=== PATIENT | male | born 1955 | race Caucasian/White ===

== ENCOUNTER → 2018-04-08 08:48 | Outpatient (CLI) | payer BC, SELFPAY ==
[2018-04-08 08:40] VITALS: BMI 35.2
--- NOTE | 2018-04-08 08:50 | RAD_ITS ---
STUDY: X-RAY - UNILATERAL RIBS ( LEFT ) REASON FOR EXAM: Male, 62 years old. Pain. Recent fall. TECHNIQUE: 4 view(s) of the ribs. COMPARISON: None. FINDINGS: There is subtle angulation of the posterior ninth rib suggesting nondisplaced fracture. The visualized lung is clear and expanded. RAD/Ribs Unil 2V No CXR IMPRESSION: Subtle angulation of the posterior left ninth rib suggesting nondisplaced fracture. Electronically Signed: Jefe Johnson MD at 9:17 EST , Service support ,
== END ==
PROVIDERS: Referring Provider Physician Assistant Surgical; Visit Provider Physician Assistant Surgical
DX: R07.81 Pleurodynia (principal)
CPT/HCPCS: 71100

== ENCOUNTER 2020-12-13 09:38 | Emergency (ER) | payer OTHER, SELFPAY ==
[2020-12-13 09:38] VITALS: BP 169/96; PULSE 71; RESP 16; TEMP 36; O2SAT 96; BMI 35.7
--- NOTE | 2020-12-13 10:16 | EDS_ITS ---
HPI History of Present Illness Chief Complaint: Lower Extremity Injury Narrative Narrative: 65-year-old male presenting from home with left ankle pain. He states he stepped off of the last step in his porch and twisted his ankle. He was able to hobble into the house. Patient states he took nothing for pain prior to arrival. Patient denies paresthesias in the left ankle. He has no left foot pain. He denies other injury. Patient complains of pain at the left lateral malleolus. PFSH PFSH Medical History no medical history Home Medications cyclobenzaprine 5 mg tablet 5 mg PO TID PRN #30 tab 04/08/18 [Rx Last Taken Unknown] cyclobenzaprine 10 mg tablet 10 mg PO TID PRN #30 tab 11/17/18 [Rx Last Taken Unknown] hydrocodone-acetaminophen 1 tab PO Q4H PRN PRN 3 Days #12 tablet 12/13/20 [Rx Last Taken Unknown] Allergy/AdvReac Type Severity Reaction Status Date / Time No Known Allergies Allergy Unverified 12/13/20 09:40 Social History Smoking Status: Never smoker ROS ROS ED Constitutional Constitutional ED: Denies chills or fever(s) Eyes Eyes: Denies blurry vision or diplopia ENT ENT ED: Denies rhinorrhea or sore throat Cardiovascular Cardiovascular: Denies chest pain Respiratory/Chest Respiratory/Chest: Denies cough, dyspnea or sputum Gastrointestinal Gastrointestinal: Denies abdominal pain, nausea or vomiting Genitourinary Genitourinary ED: Denies dysuria, hematuria or urinary frequency Musculoskeletal Musculoskeletal: Reports other Details: Left ankle pain ; Denies back pain or neck pain Integumentary Denies Abrasions or rash Neurologic Neurologic: Denies headache(s) or paresthesias EXAM Physical Exam Const Vital Signs: 12/13/20 09:38 12/13/20 11:29 Temperature 96.8 F L Temperature Source Temporal Pulse Rate 71 82 Respiratory Rate 16 17 Blood Pressure 169/96 H Blood Pressure Mean 120 Pulse Ox 96 97 Oxygen Delivery Method Room Air Positive well nourished General Appearance ED: NAD HEENT Reports moist mucous membranes normocephalic and atraumatic Eyes PERRL Resp normal respiratory effort and no use of accessory muscles Effort and Inspection: able to speak in complete sentences Cardio regular rate and regular rhythm Extremity Extremity Narrative: Tenderness to palpation of the left lateral malleolus with localized edema in this area. Medial malleolus is nontender. No tenderness to palpation of the left foot. Left foot neurovascular intact with brisk refill to all 5 toes Psych mental status grossly normal Skin no wounds Rashes: no rashes MDM MDM MDM Narrative Medical decision making narrative: Patient presenting after mechanical fall and twisting his left ankle. He declines analgesia in the ED. Obtained x-ray of the left ankle which showed Painter Fx on my interpretation and the radiologist does agree. will place patient in a walking boot and give crutches to him. He is counseled on nonweightbearing. He was given [place] for pain in case he does need this. Patient was given follow-up with Dr. Solis who he had seen previously. Patient stable for discharge at this time. Impression: 1. Mechanical fall 2. Left ankle fracture Radiography Diagnostic Testing: Radiology Impression Ankle X-Ray 12/13/20 10:16 IMPRESSION: 1. Painter B distal fibular fracture with widening of the medial ankle mortise. Electronically Signed: Jose Pacheco MD ([place]) at 10:53 EDT , Service support , Discharge Plan Triage Chief Complaint: Lower Extremity Injury ED Provider: Nick Mcdonald Dx/Rx/DC Orders Instructions: ED Fracture, Lower Extremity Prescriptions: New hydrocodone-acetaminophen 5-325 mg tablet 1 tab PO Q4H PRN PRN (Reason: Pain) 3 Days Qty: 12 RF: 0 No Action cyclobenzaprine 5 mg tablet 5 mg PO TID PRN (Reason: muscle spasm) Qty: 30 RF: 0 cyclobenzaprine 10 mg tablet 10 mg PO TID PRN (Reason: muscle spasm) Qty: 30 RF: 0 Primary Care Provider: Care Physician,No Primary Referrals: Dwaine Solis MD [STAFF PHYSICIAN] - 3-5 Days Care Physician,No Primary [Primary Care Provider] - Disposition Disposition: Home, Self Care Discharge Date/Time: 12/13/20 11:30
--- NOTE | 2020-12-13 10:16 | RAD_ITS ---
STUDY: X-RAY - LEFT ANKLE REASON FOR EXAM: Male, 65 years old. ankle pain after twisting injury this morning TECHNIQUE: 3 view(s) of the ankle. COMPARISON: None. FINDINGS: Obliquely oriented fracture of the distal fibula extends to the tibiotalar joint level. Minimal displacement. Visualized tibia is intact. Slight widening of the medial tibiotalar joint. Well-corticated osseous densities of the medial ankle. Calcaneal spur and enthesophyte. The visualized subtalar, talonavicular, calcaneocuboid and tarsal articulations are normal. Lateral ankle soft tissue swelling. RAD/Ankle min 3 Views IMPRESSION: 1. Painter B distal fibular fracture with widening of the medial ankle mortise. Electronically Signed: Jose Pacheco MD ([place]) at 10:53 EDT , Service support ,
[2020-12-13 11:29] VITALS: PULSE 82; RESP 17; O2SAT 97
== END 2020-12-13 11:30 | disposition home or self-care (01) ==
PROVIDERS: Emergency Provider Student in an Organized Health Care Education/Training Program
DX: S82.892A Other fracture of left lower leg, initial encounter for closed fracture (principal); X50.1XXA Overexertion from prolonged static or awkward postures, initial encounter
CPT/HCPCS: 73610; 99284

== ENCOUNTER 2020-12-24 12:00 | Day surgery (SDC) | payer OTHER, SELFPAY ==
--- NOTE | 2020-12-21 15:51 | EKG12_ITS ---
Test Reason : PRE OP Blood Pressure : / mmHG Vent. Rate : 066 BPM Atrial Rate : 066 BPM P-R Int : 154 ms QRS Dur : 092 ms QT Int : 380 ms P-R-T Axes : 045 014 010 degrees QTc Int : 398 ms Normal sinus rhythm Normal ECG Confirmed by HENRY ARIAS, CHAZ ([id number]), tape editor FUAD VERDUGO ([id number]) on 12/22/2020 9:13:48 AM Referred By: David Verduzco Confirmed By:CHAZ FIGUEROA MD
[2020-12-21 16:36] LABS: Hematocrit 47.6 % (40-54); Hemoglobin 16.5 g/dL (13.0-16.5); Mean Corp Hgb Conc 34.7 g/dL (32-36); Mean Corpuscular Hgb 31.8 pg (27.0-32.0); Mean Corpuscular Volume 91.7 fL (80-94); Mean Platelet Vol. 9.8 fl (6.2-12.0); Platelet Count 290 K/mm3 (150-450); RBC Distribution Width CV 12.5 % (11.6-14.6); RBC Distribution Width SD 42.1 fl (35.1-43.9); Red Blood Count 5.19 M/mm3 (4.6-6.2); White Blood Count 8.9 K/mm3 (4.4-11.0)
[2020-12-21 17:10] LABS: Hemoglobin A1c 5.8 % (3.8-5.6)
[2020-12-21 17:46] LABS: Anion Gap 7 (5-15); BUN 13 mg/dL (7-18); BUN/Creat Ratio 14.9 RATIO (10-20); Calcium,Total 9.1 mg/dL (8.5-10.1); Chloride 105 mmol/L (98-107); Creatinine, Serum 0.87 mg/dL (0.70-1.30); EST Glomerular Filtration Rate 93 mL/min (>60); Est Glom Filt Rate - Afr Amer 113 mL/min (>60); Glucose 134 mg/dL (74-106); Potassium 3.5 mmol/L (3.5-5.1); Sodium Level 143 mmol/L (136-145)
[2020-12-24] VITALS (8 sets, daily range): BP systolic 129–155; BP diastolic 77–95; PULSE 62–69; RESP 16–18; TEMP 36.4–37.2; O2SAT 94–99; BMI 36.8
[2020-12-24] MEDS: Lactated Ringers 1,000 ML 100 ML IV (12:35)
--- NOTE | 2020-12-24 13:30 | RAD_ITS ---
STUDY: X-RAY - LEFT ANKLE REASON FOR EXAM: Male, 65 years old. ORIF, ANKLE, POSSIBLE SYNDESMOSIS, LEFT -- -- FL 24.3 seconds. -- Reason: Twisted ankle on 12-10. TECHNIQUE: Intraoperative fluoroscopy COMPARISON: 13 December 2020 FINDINGS: Intraoperative fluoroscopy was provided during ankle instrumentation. RAD/Ankle 2 Views IMPRESSION: Intraoperative fluoroscopy for ankle surgery, refer to operative report. Electronically Signed: Oswald Angeles MD at 19:31 EDT Tel , Service support ,
[2020-12-24] MEDS: Cefazolin 2 GM in 0.9% Normal Saline 100 ML IV (13:45)
--- NOTE | 2020-12-24 14:59 | PCM.OPRPT ---
Report of Operation Date of Procedure: 12/24/20 Pre-Operative Diagnosis: Left bimalleolar equivalent ankle fracture Post-Operative Diagnosis: Left bimalleolar equivalent ankle fracture Surgery/Procedure Performed:: Left ankle distal fibula open reduction internal fixation, radiographic stress exam left ankle Description of Surgical Findings:: Stable we will reduce fracture, no instability of the syndesmosis under stress exam Surgeon: David Verduzco fitting room inspector: Dian Blank Type of Anesthesia: General Anesthesiologist: Aniceto Kruse Special Medications: ancef Specimen's removed: none Estimated Blood Loss (mL): 10 Fluids Replaced: 1200 ml Description of Procedure: 65-year-old male who presented to my office and was evaluated by the PA. He had a Painter B distal fibula fracture which was found to have instability medially. Based on this we watch the swelling and after the swelling went down he was counseled on potential for surgical intervention. After discussion of nonoperative and operative intervention with my physician assistant technician as well as risks of surgery which include but are not limited to blood loss, DVTs, PEs, nervous damage infection, the risk of anesthesia, nonunion, malunion and the general risk of loss of life with surgery patient demonstrated understanding was able to sign informed consent. I did meet him in the preoperative area. We examined his extremity was neurovascular intact. He wished to proceed with surgery and demonstrated understanding of the risks and benefits. Procedure: On the day of the procedure patient's left leg was marked in the preoperative area. Patient was brought back to the operating room he was transferred the table in supine position. Anesthesia assumed she will C-spine airway and remained controlled throughout the remainder of the procedure. After patient was appropriately anesthetized patient was positioned with a bump under the hip and blankets out of the left leg in order to elevated for radiographs. Blankets were secured to the table. Patient was secured to the table. All bony prominences identified well-padded. Left leg was then prepped in a sterile fashion while the surgeon scrubbed. Upon reentering the room the left lower extremity was draped in a sterile fashion timeout was called. Upon agreed upon the side, site, the procedure to be performed, patient identity and antibiotics given. At this time the incision was marked out an Esmarch bandage used to exsanguinate the leg. Tourniquet was placed to 250 mmHg. Incision was then through skin. Blunt dissection was taken down through subcutaneous tissues fat down to fascia. Once we identified the fracture retractors were placed. Pointed reduction clamp was used to reduce the fracture. After we reduced the fracture live x-ray was used to verify fracture reduction. My physician assistant technician was vital during this portion in order to help obtain and maintain reduction by pulling traction on the foot and rotating it. Once or after the fracture reduction a lag screw was placed. Once leg she was placed a one third tubular plate was placed over the lateral aspect of the fibula and a screw was placed proximally and distally. After provisionally fixing the plate live x-ray was used to verify fracture reduction and plate placement. Once we are happy with this 2 additional cortical screws were placed proximally. 1 additional cortical screw was placed distally in the plate down to the bone and one locking screw was placed in the distal portion of the fibula once was completed live x-ray was again used to verify fracture reduction. While we are taking the mortise view we did provide external rotation to stress the joint and the syndesmosis remained stable without excessive widening. At this time the wound was closed with 0 Vicryl to close the deep layers 2-0 Vicryl for the subcutaneous layer and final skin closure was done with nylon sutures. Prior to closure we did copiously irrigate out the wound with normal saline. Once the wound was closed Xeroform dressing was placed. Sterile dressing was placed. Compressive dressing was placed. Tourniquet was let down. Posterior splint was placed. Patient was then transferred to the [facility] and then transferred to the PACU for recovery. Postop plan: Nonweightbearing for total of 6 weeks. Aspirin 325 mg daily for 2 weeks. Begin range of motion and physical therapy at 2 weeks postop. My physician assistant technician was vital throughout the procedure. They are vital in positioning the patient. They were vital in positioning the extremity during surgery. They were vital and protecting the neurovascular structures during surgery. There knowledge of the anatomy as well as stage of the procedure helped aid in safe and expedient placed in the procedure they were also vital in closure under my direct supervision as well as splinting of the extremity. They were especially vital in providing traction and rotation in order to help reduce the fracture and maintain reduction. Grafts/Implants Used: [place] 7-hole one third tubular plate Complications No intraoperative complications Admit VTE Documentation VTE Present on Admission: No VTE Mechan Device Prophylaxis: SCD's VTE Pharm Prophylaxis ordered?: Yes
[2020-12-24] MEDS: Ketorolac 15 MG/ML Vial IV (16:21)
== END 2020-12-24 17:35 | disposition home or self-care (01) ==
LOC: SDC 12:01 → AC 12:02
PROVIDERS: Referring Provider Specialist; Visit Provider Specialist
PROC: (CPT 27792; principal; 2020-12-24 13:10)
DX: S82.62XA Displaced fracture of lateral malleolus of left fibula, initial encounter for closed fracture (principal); S93.432A Sprain of tibiofibular ligament of left ankle, initial encounter; X50.1XXA Overexertion from prolonged static or awkward postures, initial encounter; Y93.01 Activity, walking, marching and hiking; Y92.9 Unspecified place or not applicable; Y99.9 Unspecified external cause status; E66.9 Obesity, unspecified; Z68.33 Body mass index [BMI] 33.0-33.9, adult
CPT/HCPCS: 01480; 27792; 36415; 73600; 76000; 80048; 83036; 85027; 93005; C1776; J7120; J2405

== ENCOUNTER 2022-07-27 10:02 | Outpatient (CLI) | payer MEDICARE, OTHER, SELFPAY ==
--- NOTE | 2022-07-27 10:19 | EKG12_ITS ---
Test Reason : PRE OP Blood Pressure : / mmHG Vent. Rate : 067 BPM Atrial Rate : 067 BPM P-R Int : 148 ms QRS Dur : 090 ms QT Int : 410 ms P-R-T Axes : 031 003 016 degrees QTc Int : 433 ms Normal sinus rhythm Normal ECG Confirmed by HENRY ARIAS, CHAZ ([id number]), newspaper or periodical editor FUAD VERDUGO ([id number]) on 07/28/2022 8:45:32 AM Referred By: Chet Mejia Confirmed By:CHAZ FIGUEROA MD
[2022-07-27 10:53] LABS: Hemoglobin 16.9 g/dL (13.0-16.5); Mean Corp Hgb Conc 34.5 g/dL (32-36); Mean Corpuscular Hgb 32.3 pg (27.0-32.0); Mean Corpuscular Volume 93.7 fL (80-94); Mean Platelet Vol. 10.4 fl (6.2-12.0); Platelet Count 240 K/mm3 (150-450); RBC Distribution Width CV 12.6 % (11.6-14.6); RBC Distribution Width SD 43.6 fl (35.1-43.9); Red Blood Count 5.23 M/mm3 (4.6-6.2); White Blood Count 7.1 K/mm3 (4.4-11.0)
[2022-07-27 11:31] LABS: Anion Gap 6 (5-15); BUN 11 mg/dL (7-18); BUN/Creat Ratio 13.9 RATIO (10-20); Calcium,Total 8.9 mg/dL (8.5-10.1); Chloride 105 mmol/L (98-107); Creatinine, Serum 0.79 mg/dL (0.70-1.30); EST Glomerular Filtration Rate 104 mL/min (>60); Est Glom Filt Rate - Afr Amer 126 mL/min (>60); Glucose 108 mg/dL (74-106); Potassium 4.1 mmol/L (3.5-5.1); Sodium Level 139 mmol/L (136-145)
[2022-07-27 11:38] LABS: Hemoglobin A1c 5.9 % (3.8-5.6)
== END 2022-07-27 23:59 | disposition home or self-care (01) ==
PROVIDERS: Referring Provider Physician Assistant; Visit Provider Physician Assistant
DX: Z01.810 Encounter for preprocedural cardiovascular examination (principal)
CPT/HCPCS: 36415; 80048; 83036; 85027; 93005

== ENCOUNTER → 2023-05-14 | Outpatient (CLI) | payer MEDICARE, OTHER, SELFPAY ==
[2023-05-14 12:45] LABS: Absolute Lymphocyte Count 2.13 X10^3/uL (0.83-4.51); Absolute Neutrophil Count 5.4 X10^3/uL (2.0-7.7); Basophil# 0.04 X10^3/uL; Basophil% 0.5 % (0-1); Eosinophil# 0.12 X10^3/uL; Eosinophils% 1.5 % (0-5); Hematocrit 48.3 % (40-54); Hemoglobin 16.8 g/dL (13.0-16.5); Lymphocyte # 2.13 X10^3/ul (0.83-4.51); Lymphocyte % 26.1 % (19-41); Mean Corp Hgb Conc 34.8 g/dL (32-36); Mean Corpuscular Hgb 31.9 pg (27.0-32.0); Mean Corpuscular Volume 91.8 fL (80-94); Mean Platelet Vol. 10.3 fl (6.2-12.0); Monocyte# 0.44 X10^3/uL; Monocyte% 5.4 % (0-10); NRBC Flagged by Analyzer 0 % (0-5); Neutrophil # 5.39 X10^3/uL (2.7-7.7); Platelet Count 244 K/mm3 (150-450); RBC Distribution Width CV 12.8 % (11.6-14.6); RBC Distribution Width SD 42.7 fl (35.1-43.9); Red Blood Count 5.26 M/mm3 (4.6-6.2); White Blood Count 8.2 K/mm3 (4.4-11.0)
[2023-05-14 13:22] LABS: ALB/GLOB Ratio 1.3 RATIO (0.9-2.4); AST(SGOT) 15 U/L (15-37); Alanine Aminotransfer ALT/SGPT 25 U/L (16-61); Albumin, Serum 4.2 g/dL (3.2-5.0); Alkaline Phosphatase 92 U/L (45-117); Anion Gap 5 (5-15); BUN 11 mg/dL (7-18); BUN/Creat Ratio 13.9 RATIO (10-20); Chloride 107 mmol/L (98-107); Cholesterol 260 mg/dL (200); Creatinine, Serum 0.79 mg/dL (0.70-1.30); EST Glomerular Filtration Rate 104 mL/min (>60); Est Glom Filt Rate - Afr Amer 126 mL/min (>60); Globulin 3.2 g/dL (2.2-4.2); Glucose 98 mg/dL (74-106); High Density Lipoprotein 53 mg/dL; PSA,Total - Annual Screen 4.64 ng/mL (0.00-4.00); Potassium 3.8 mmol/L (3.5-5.1); Protein, Total 7.4 g/dL (6.4-8.2); Sodium Level 139 mmol/L (136-145); Triglycerides 170 mg/dL; Very Low Density Lipoprotein 34 mg/dL (5-40)
[2023-05-14 13:55] LABS: Hepatitis C Antibody Non-Reactive (Nonreactive)
== END | disposition home or self-care (01) ==
LOC: POLAB3 11:42
PROVIDERS: Visit Provider Family Medicine Geriatric Medicine
DX: Z13.89 Encounter for screening for other disorder (principal); Z12.5 Encounter for screening for malignant neoplasm of prostate; I10 Essential (primary) hypertension; E78.5 Hyperlipidemia, unspecified; E55.9 Vitamin D deficiency, unspecified
CPT/HCPCS: 36415; 80053; 80061; 82306; 84153; 84443; 85025; 86803; G0103

== ENCOUNTER → 2023-12-04 | Outpatient (CLI) | payer MEDICARE, OTHER, SELFPAY ==
[2023-12-04 15:48] LABS: Absolute Lymphocyte Count 2.29 X10^3/uL (0.83-4.51); Absolute Neutrophil Count 6.3 X10^3/uL (2.0-7.7); Basophil# 0.04 X10^3/uL; Basophil% 0.4 % (0-1); Eosinophil# 0.05 X10^3/uL; Eosinophils% 0.5 % (0-5); Hematocrit 50.3 % (40-54); Hemoglobin 17.3 g/dL (13.0-16.5); Lymphocyte # 2.29 X10^3/ul (0.83-4.51); Lymphocyte % 24.6 % (19-41); Mean Corp Hgb Conc 34.4 g/dL (32-36); Mean Corpuscular Hgb 31.9 pg (27.0-32.0); Mean Corpuscular Volume 92.8 fL (80-94); Mean Platelet Vol. 10.3 fl (6.2-12.0); Monocyte# 0.54 X10^3/uL; Monocyte% 5.8 % (0-10); NRBC Flagged by Analyzer 0 % (0-5); Neutrophil # 6.34 X10^3/uL (2.7-7.7); Neutrophil % 68.3 % (47-70); Platelet Count 259 K/mm3 (150-450); RBC Distribution Width CV 12.6 % (11.6-14.6); RBC Distribution Width SD 42.6 fl (35.1-43.9); Red Blood Count 5.42 M/mm3 (4.6-6.2); White Blood Count 9.3 K/mm3 (4.4-11.0)
[2023-12-04 15:57] LABS: Vitamin D,25 Hydroxy 17.8 ng/mL
[2023-12-04 16:04] LABS: ALB/GLOB Ratio 1.4 RATIO (0.9-2.4); AST(SGOT) 25 U/L (15-37); Alanine Aminotransfer ALT/SGPT 32 U/L (16-61); Albumin, Serum 4.5 g/dL (3.2-5.0); Alkaline Phosphatase 90 U/L (45-117); Anion Gap 6 (5-15); BUN 13 mg/dL (7-18); BUN/Creat Ratio 13.1 RATIO (10-20); Calcium,Total 9.4 mg/dL (8.5-10.1); Chloride 103 mmol/L (98-107); Creatinine, Serum 0.99 mg/dL (0.70-1.30); EST Glomerular Filtration Rate 80 mL/min (>60); Est Glom Filt Rate - Afr Amer 97 mL/min (>60); Globulin 3.3 g/dL (2.2-4.2); Glucose 122 mg/dL (74-106); Protein, Total 7.8 g/dL (6.4-8.2); Sodium Level 138 mmol/L (136-145)
== END | disposition home or self-care (01) ==
LOC: POLAB3 15:16
PROVIDERS: PCP Family Medicine Geriatric Medicine; Visit Provider Family Medicine Geriatric Medicine
DX: I10 Essential (primary) hypertension (principal); E55.9 Vitamin D deficiency, unspecified
CPT/HCPCS: 36415; 80053; 82306; 84443; 85025

== ENCOUNTER → 2024-08-12 | Outpatient (CLI) | payer MEDICARE, OTHER, SELFPAY ==
[2024-08-12 12:47] LABS: Absolute Lymphocyte Count 2.21 X10^3/uL (0.83-4.51); Absolute Neutrophil Count 5.1 X10^3/uL (2.0-7.7); Basophil# 0.05 X10^3/uL; Basophil% 0.6 % (0-1); Eosinophil# 0.05 X10^3/uL; Eosinophils% 0.6 % (0-5); Hemoglobin 16.9 g/dL (13.0-16.5); Lymphocyte # 2.21 X10^3/ul (0.83-4.51); Lymphocyte % 28.1 % (19-41); Mean Corp Hgb Conc 35.2 g/dL (32-36); Mean Corpuscular Hgb 32.1 pg (27.0-32.0); Mean Corpuscular Volume 91.1 fL (80-94); Mean Platelet Vol. 10.2 fl (6.2-12.0); Monocyte% 6.4 % (0-10); NRBC Flagged by Analyzer 0 % (0-5); Neutrophil # 5.05 X10^3/uL (2.7-7.7); Neutrophil % 64.2 % (47-70); Platelet Count 250 K/mm3 (150-450); RBC Distribution Width CV 12.6 % (11.6-14.6); RBC Distribution Width SD 42.3 fl (35.1-43.9); Red Blood Count 5.27 M/mm3 (4.6-6.2); White Blood Count 7.9 K/mm3 (4.4-11.0)
[2024-08-12 13:54] LABS: ALB/GLOB Ratio 1.7 RATIO (0.9-2.4); AST(SGOT) 23 U/L (<=37); Alanine Aminotransfer ALT/SGPT 15 U/L (<=46); Albumin, Serum 4.7 g/dL (3.4-4.8); Alkaline Phosphatase 92 U/L (40-129); Anion Gap 14 (5-15); BUN 15 mg/dL (4-19); BUN/Creat Ratio 19.6 RATIO (10-20); Calcium,Total 9.3 mg/dL (7.6-11.0); Carbon Dioxide 22.5 mmol/L (21.0-32.0); Chloride 104 mmol/L (98-108); Creatinine, Serum 0.76 mg/dL (0.70-1.20); EST Glomerular Filtration Rate 99 (>60); Globulin 2.7 g/dL (2.2-4.2); Glucose 113 mg/dL (70-99); PSA,Total - Annual Screen 3.16 ng/mL (0.02-4.00); Protein, Total 7.3 g/dL (5.9-8.4); Sodium Level 140 mmol/L (133-145); Total Bilirubin 0.84 mg/dL (0.00-1.30); Vitamin D,25 Hydroxy 21.5 ng/mL (30-100)
== END | disposition home or self-care (01) ==
LOC: LAB 11:35
PROVIDERS: PCP Family Medicine Geriatric Medicine; Referring Provider Family Medicine Geriatric Medicine; Visit Provider Family Medicine Geriatric Medicine
DX: I10 Essential (primary) hypertension (principal); E55.9 Vitamin D deficiency, unspecified; Z12.5 Encounter for screening for malignant neoplasm of prostate
CPT/HCPCS: 36415; 80053; 82306; 84153; 84443; 85025; G0103